=== PATIENT | female | born 1985 | race African-American/Black ===

== ENCOUNTER 2019-06-12 18:30 | Emergency (ER) | payer BC, OTHER ==
[~2019-06-12] VITALS: Ht 162.6 cm; Wt 52.0 kg
[2019-06-12] MEDS ORDERED: ACETAMINOPHEN 325MG TABLET PO ONE (20:45)
[2019-06-12 21:20] LABS: HEMATOCRIT. 38.7 % (36.0-48.0); HEMOGLOBIN. 12.9 g/dL (12.0-16.0); MEAN CORPUSCULAR HEMOGLOBIN 32.3 pg (28.0-32.0); MEAN CORPUSCULAR VOLUME 97.1 fL (81.0-99.0); MEAN PLATELET VOLUME 10.5 fl (7.4-10.4); PLATELET 216 x1000/uL (130-400); RED BLOOD CELL COUNT 3.99 mill/uL (4.2-5.4); RED CELL DISTRIBUTION WIDTH 13.2 % (11.6-14.6)
[2019-06-12 21:23] LABS: CHLORIDE 109 mEq/L (98-107)
[2019-06-12 21:35] LABS: HCG SCREEN NEGATIVE
[2019-06-12 21:52] LABS: CLARITY URINE CLOUDY (CLEAR); COLOR URINE YELLOW (YELLOW); KETONES URINE 4+ (NEGATIVE); LEUKOCYTE ESTERASE URINE NEGATIVE (NEGATIVE); NITRITE URINE NEGATIVE (NEGATIVE); OCCULT BLOOD URINE 3+ (NEGATIVE); PROTEIN URINE TRACE (NEGATIVE); SPECIFIC GRAVITY URINE 1.022 (1.005-1.030); UROBILINOGEN URINE 0.2 E.U./dL (0.2-1.0)
[2019-06-12 22:08] LABS: PLATELET ESTIMATE NORMAL
[2019-06-12] MEDS ORDERED: ONDANSETRON HCL 4MG/2ML INJ IV STA (22:10)
[2019-06-12] MEDS ORDERED: SODIUM CHLORIDE 0.9% 1,000 ML IV ONE (22:10)
[2019-06-12] MEDS ORDERED: MORPHINE SULFATE 4 MG/ML CPJ (NOT FOR IM USE) IV STA (22:10)
[2019-06-12] MEDS ORDERED: IOHEXOL-300 100 ML BOTTLE ONE (23:21)
[2019-06-13] MEDS ORDERED: LEVOFLOXACIN 250MG TABLET PO ONE (00:45)
[2019-06-13] MEDS ORDERED: METRONIDAZOLE 500MG TABLET PO ONE (00:45)
[2019-06-13] MEDS ORDERED: HYDROCODONE/ACETAMINOPHEN 5/325MG TABLET PO ONE (00:45)
[2019-06-13 01:39] VITALS: BP 132/80
== END 2019-06-13 01:40 | disposition home or self-care (01) ==
LOC: ER 18:30
DX: K52.9 Noninfective gastroenteritis and colitis, unspecified (principal); F12.10 Cannabis abuse, uncomplicated
CPT/HCPCS: 36415; 71045; 74177; 76830; 76856; 80053; 81003; 81025; 83690; 84703; 85025; 86850; 86900; 86901; 93005; 96361; 96374; 96375; 99284; J2270; J2405; J7030; Q9967; Z7610

== ENCOUNTER 2020-12-16 21:09 | Emergency (ER) | payer SELFPAY ==
[~2020-12-16] VITALS: Ht 162.6 cm; Wt 55.0 kg
[2020-12-16] MEDS ORDERED: SODIUM CHLORIDE 0.9% 1,000 ML IV ONE (21:45)
[2020-12-16] MEDS ORDERED: LORAZEPAM 2MG/ML CPJ IM ONE (22:15)
[2020-12-16 23:00] LABS: BASOPHILS % 0.5 % (0.0-2.0); EOSINOPHILS % 0.2 % (0.0-5.0); HEMATOCRIT. 36.2 % (36.0-48.0); HEMOGLOBIN. 12.5 g/dL (12.0-16.0); LYMPHOCYTES % 17.1 % (20.0-50.0); MEAN CORPUSCULAR HEMOGLOBIN 32.4 pg (28.0-32.0); MEAN CORPUSCULAR VOLUME 94.1 fL (81.0-99.0); MEAN PLATELET VOLUME 8.8 fl (7.4-10.4); MONOCYTES % 4.7 % (2.0-8.0); NEUTROPHILS % 77.5 % (40.0-76.0); PLATELET 254 x1000/uL (130-400); RED BLOOD CELL COUNT 3.85 mill/uL (4.2-5.4); RED CELL DISTRIBUTION WIDTH 12.9 % (11.6-14.6)
[2020-12-16 23:04] LABS: CHLORIDE 109 mEq/L (98-107)
[2020-12-16 23:08] LABS: ETHANOL BLOOD 179 mg/dL
[2020-12-16 23:10] LABS: HCG SCREEN NEGATIVE
[2020-12-17 01:16] LABS: CLARITY URINE CLEAR (CLEAR); COLOR URINE YELLOW (YELLOW); KETONES URINE NEGATIVE (NEGATIVE); LEUKOCYTE ESTERASE URINE NEGATIVE (NEGATIVE); NITRITE URINE NEGATIVE (NEGATIVE); OCCULT BLOOD URINE NEGATIVE (NEGATIVE); PROTEIN URINE NEGATIVE (NEGATIVE); SPECIFIC GRAVITY URINE 1.019 (1.005-1.030); UROBILINOGEN URINE 0.2 E.U./dL (0.2-1.0)
[2020-12-17 01:25] LABS: *AMPHETAMINES SCREEN URINE NEGATIVE (NEGATIVE); *BARBITURATES SCREEN URINE NEGATIVE (NEGATIVE); *BENZODIAZEPINES SCREEN URINE NEGATIVE (NEGATIVE)
[2020-12-17 01:26] LABS: *COCAINE SCREEN URINE NEGATIVE (NEGATIVE); METHADONE URINE SCREEN NEGATIVE (NEGATIVE); OPIATES URINE SCREEN NEGATIVE (NEGATIVE); PHENCYCLIDINE URINE SCREEN NEGATIVE (NEGATIVE)
[2020-12-17 01:31] LABS: CANNABINOID URINE SCREEN PRESUMTIVE POSITIVE (NEGATIVE)
[2020-12-17 02:33] VITALS: BP 105/66
== END 2020-12-17 02:33 | disposition home or self-care (01) ==
LOC: ER 21:09
DX: F10.129 Alcohol abuse with intoxication, unspecified (principal); R45.1 Restlessness and agitation; F12.90 Cannabis use, unspecified, uncomplicated; Y90.6 Blood alcohol level of 120-199 mg/100 ml; R03.0 Elevated blood-pressure reading, without diagnosis of hypertension; G35 Multiple sclerosis
CPT/HCPCS: 36415; 70450; 80053; 80305; 80320; 81003; 84703; 85025; 93005; 96360; 99285; J7030; G0480